=== PATIENT | male | born 1970 | race Caucasian/White ===

== ENCOUNTER 2021-12-11 16:29 | Inpatient (IN) | payer OTHER ==
[~2021-12-11] VITALS: Ht 188 cm; Wt 137.0 kg
[~2021-12-11 16:29] MED LIST: CEPHALEXIN500 M1 PO; CITALOPRAM40 MG PO; NO HOME MEDICATIONS; VIIBRYD40 MG PO
[2021-12-11 17:22] LABS: BASO % 0.4 % (0.0-2.0); EOS # 0.1 K/mm3 (0.0-0.7); EOS % 1.1 % (0.0-4.0); GRAN # 7.7 K/mm3 (1.4-6.5); GRAN % 76.6 % (42.2-75.2); HEMATOCRIT 42.1 % (42.0-52.0); LYMPH # 1.4 K/mm3 (1.2-3.4); LYMPH % 14.4 % (20.0-51.0); MEAN CELL VOLUME 86 fl (80.0-100.0); MEAN CORPUSCULAR HEMOGLOBIN 31 pg (27-31); MEAN CORPUSCULAR HGB CONC 36 g/dl (33.0-37.0); MONO # 0.7 K/mm3 (0.1-0.6); MONO % 6.9 % (1.7-9.3); PLATELET COUNT 193 K/mm3 (130-400); RED BLOOD COUNT 4.91 M/mm3 (4.20-5.60); REDCELL DISTRIBUTION WIDTH-CV 12.3 % (11.5-14.5)
[2021-12-11 17:35] LABS: ALBUMIN 4.2 gm/dL (3.5-5.0); BILIRUBIN,TOTAL 0.4 mg/dL (0.2-1.2); C-REACTIVE PROTEIN 0.58 mg/dL (0.00-0.50); CALCIUM 9.5 mg/dL (8.4-10.2); CREATININE, serum 1.17 mg/dL (0.72-1.25); POTASSIUM 4.3 mmol/L (3.5-4.5); TOTAL PROTEIN 7.2 gm/dL (6.2-8.1)
[2021-12-11 17:57] LABS: COLLECTION METHOD CLEAN CATCH
[2021-12-11 18:04] LABS: URINE APPEARANCE Clear (CLEAR/HAZY); URINE COLOR Yellow (YELLOW)
[2021-12-11 18:05] LABS: PH 5.5 (5.0-8.5); URINE BLOOD 3+ (NEGATIVE); URINE GLUCOSE Negative (NEGATIVE); URINE KETONE Negative (NEGATIVE); URINE NITRATE Negative (NEGATIVE); URINE PROTEIN(semi-quant) Negative (NEGATIVE); URINE UROBILINOGEN 0.2 E.U/dL (0.2-1.0)
[2021-12-11 18:08] LABS: MUCOUS Present (NOT PRESENT); SQUAMOUS EPITHELIAL None Seen /hpf (0-10); URINE BACTERIA None Seen /hpf (NONE SEEN); URINE RBC >50 /hpf (0-2)
[2021-12-11] MEDS ORDERED: EFFEXOR-XR150 MG PO (20:07)
[2021-12-11] MEDS ORDERED: ZYRTEC5 MG PO (20:08)
[2021-12-11 21:15] VITALS: BP 155/90; PULSE 88; TEMP 97.7
[2021-12-11 23:40] VITALS: BP 142/76; PULSE 71; TEMP 97.7
[2021-12-12] VITALS (11 sets, daily range): BP systolic 121–173; BP diastolic 60–93; PULSE 69–88; TEMP 97.9–98.1
[2021-12-13 04:16] VITALS: BP 106/49; PULSE 88; TEMP 98.7
[2021-12-13 06:35] LABS: HEMATOCRIT 37.2 % (42.0-52.0); MEAN CELL VOLUME 88 fl (80.0-100.0); MEAN CORPUSCULAR HEMOGLOBIN 31 pg (27-31); MEAN CORPUSCULAR HGB CONC 35 g/dl (33.0-37.0); MEAN PLATELET VOLUME 11.5 fl (7.4-10.4); PLATELET COUNT 162 K/mm3 (130-400); RED BLOOD COUNT 4.24 M/mm3 (4.20-5.60); REDCELL DISTRIBUTION WIDTH-CV 12.6 % (11.5-14.5)
[2021-12-13 06:50] LABS: CREATININE, serum 1.3 mg/dL (0.72-1.25); POTASSIUM 4.1 mmol/L (3.5-4.5)
[2021-12-13 07:22] VITALS: BP 138/72; PULSE 68; TEMP 98.3
[2021-12-13] MEDS ORDERED: FLOMAX 0.40.4 MG/CAP PO (11:17)
[2021-12-13] MEDS ORDERED: NORCO 325 MG-51 TAB PO (11:18)
[2021-12-13] MEDS ORDERED: BACTRIM DS 8001 TAB PO (11:18)
[2021-12-13 11:48] VITALS: BP 141/72; PULSE 75; TEMP 98.4
== END 2021-12-13 16:50 | disposition home or self-care (01) | DRG 660 ==
LOC: COL.ER 16:29 → SURG 20:00
PROVIDERS: Nurse Practitioner; ADMIT Urology
PROC: 0T768DZ Dilation of Right Ureter with Intraluminal Device, Via Natural or Artificial Opening Endoscopic (ICD-10-PCS; principal; 2021-12-12 10:00)
PROC: 0T568ZZ Destruction of Right Ureter, Via Natural or Artificial Opening Endoscopic (ICD-10-PCS; 2021-12-12 10:00)
PROC: BT1D1ZZ Fluoroscopy of Right Kidney, Ureter and Bladder using Low Osmolar Contrast (ICD-10-PCS; 2021-12-12 10:00)
DX: N20.2 Calculus of kidney with calculus of ureter (principal); N99.71 Accidental puncture and laceration of a genitourinary system organ or structure during a genitourinary system procedure; Z88.1 Allergy status to other antibiotic agents; F41.9 Anxiety disorder, unspecified; G47.33 Obstructive sleep apnea (adult) (pediatric); F32.A Depression, unspecified; Z90.89 Acquired absence of other organs; Y83.8 Other surgical procedures as the cause of abnormal reaction of the patient, or of later complication, without mention of misadventure at the time of the procedure; Y92.238 Other place in hospital as the place of occurrence of the external cause
CPT/HCPCS: OP; A4314; C1758; C1769; C2617; G0378; J0690; J0696; J1100; J1170; J1885; J2405; J2704; J3010; J7030; Q9966; Q9967

== ENCOUNTER 2022-02-03 09:07 | Day surgery (SDC) | payer OTHER ==
[~2022-02-03] VITALS: Ht 188 cm; Wt 137.0 kg
[~2022-02-03 09:07] MED LIST changes: +BACTRIM DS 8001 TAB PO; +EFFEXOR-XR150 MG PO; +FLOMAX 0.40.4 MG/CAP PO; +NORCO 325 MG-51 TAB PO; +ZYRTEC5 MG PO
[2022-02-03 10:34] VITALS: BP 155/91; PULSE 80; TEMP 97
[2022-02-03 13:50] VITALS: BP 131/88; PULSE 64; TEMP 97.4
[2022-02-03 14:05] VITALS: BP 137/85; PULSE 72
[2022-02-03 14:20] VITALS: BP 138/87; PULSE 68
[2022-02-03 14:35] VITALS: BP 140/86; PULSE 72
--- NOTE | 2022-02-03 14:55 | NUR ---
1350 RETURNS TO ROOM 5 PER CART FROM PACU. AWAKE, ALERT. RESP CLEAR, UNLABORED. MONITORS ON, VITAL SIGNS OBTAINED. PATIENT DENIES PAIN AT THIS TIME. IN ROOM. CALL LIGHT AT SIDE. 1405 TOLERATES PO WATER WITHOUT NAUSEA 1425 AMBULATES TO BATHROOM WITH STANDBY ASSIST VOIDS WITHOUT DIFFICULTY URINE PINK
--- NOTE | 2022-02-03 14:55 | NUR ---
0713 DISCHARGE INSTRUCTIONS REVIEWED WITH PATIENT AND VERBALIZING UNDERSTANDING. COPY OF DISCHARGE INSTRUCTIONS PROVIDED.
== END 2022-02-03 14:55 | disposition home or self-care (01) ==
LOC: SDCO 09:07
DX: N13.2 Hydronephrosis with renal and ureteral calculous obstruction (principal); N13.1 Hydronephrosis with ureteral stricture, not elsewhere classified
CPT/HCPCS: C1726; C1758; C1769; C2617; J0690; J1100; J2405; J2704; J3010; J7120; Q9966

== ENCOUNTER → 2022-12-20 | Outpatient (CLI) | payer BC ==
[~2022-12-20] MED LIST changes: +COZAAR 25MG25 MG/TAB PO; +PYRIDIUM 100MG100 MG PO
== END ==
LOC: COL.RAD 09:18
DX: N13.5 Crossing vessel and stricture of ureter without hydronephrosis (principal)